=== PATIENT | female | born 1990 | race Two or more races ===

== ENCOUNTER 2023-01-22 09:32 | Inpatient (IN) | payer BC ==
[2023-01-22] MEDS ORDERED: hydrALAZINE 20 MG/ML VIAL SLOW IVP PRN ×2 (10:25→15:16)
[2023-01-22] MEDS ORDERED: Fentanyl 100 MCG/2 ML VIAL SLOW IVP PRN ×2 (10:25→12:20)
[2023-01-22] MEDS ORDERED: Promethazine HCl 25 MG/ML VIAL IM PRN ×3 (10:25→17:31)
[2023-01-22] MEDS ORDERED: Ondansetron PF 4 MG/2 ML Vial IVP PRN ×3 (10:25→15:16)
[2023-01-22] MEDS ORDERED: Bicitra 30 ML UDCUP PO PRN (10:25)
[2023-01-22] MEDS ORDERED: Famotidine/PF 20 mg/2ml Vial SLOW IVP PRN (10:25)
[2023-01-22] MEDS ORDERED: Lactated Ringer's 1,000 ML IV SCH (10:30)
[2023-01-22] MEDS ORDERED: NS w/ Oxytocin 30 units 500 ML IV SCH (10:30)
[2023-01-22] MEDS ORDERED: CEFAZOLIN 2 GM in Sodium Chloride 0.9% 100 ML IVPB SCH (10:30)
[2023-01-22 11:00] VITALS: BMI 24.4
[2023-01-22 11:06] LABS: Hemoglobin 11.7 g/dL (12.0-15.5); Mean Corpuscular HGB CONC 32.2 g/dL (32.0-36.0); Mean Corpuscular Hemoglobin 28.1 pg (27.0-33.0); Mean Corpuscular Volume 87.3 fl (81.6-98.3); Platelet Count 110 10x3/uL (150-450); RBC Distribution Width 14.7 % (11.5-14.5); Red Blood Cell (RBC) Count 4.16 10x6/uL (3.90-5.03); White Blood Cell (WBC) Count 11.2 10x3/uL (3.5-10.5)
[2023-01-22] MEDS ORDERED: Fentanyl 2 mcg/Bup 0.1% Cadd 100 ML ONE (11:43)
[2023-01-22] MEDS ORDERED: CEFAZOLIN 2 GM VIAL ONE (12:05)
[2023-01-22] MEDS ORDERED: diphenhydrAMINE 50 MG/ML VIAL IVP PRN (12:20)
[2023-01-22] MEDS ORDERED: Naloxone HCl 0.4 mg/ml Vial IV PRN (12:20)
[2023-01-22] MEDS ORDERED: Promethazine HCl 25 MG SUPP PR PRN (12:20)
[2023-01-22] MEDS ORDERED: Meperidine HCl/PF 25 MG/ML VIAL SLOW IVP PRN (12:20)
[2023-01-22] MEDS ORDERED: Ondansetron HCl/PF 4 MG/2 ML Vial IVP PRN (12:20)
[2023-01-22] MEDS ORDERED: Naloxone HCl 0.4 mg/ml Vial IVP PRN ×2 (12:20)
[2023-01-22] MEDS ORDERED: Moisturizing Cream (Eucerin) 113 GM JAR TOP PRN (12:20)
[2023-01-22] MEDS ORDERED: Morphine PF 10 MG/10 ML VIAL ONE (12:26)
[2023-01-22] MEDS ORDERED: Communication Order-Pharmacy FS SCH (12:30)
[2023-01-22] MEDS ORDERED: Phenylephrine 40 MG/NS 250 ML 250 ML ONE (12:35)
[2023-01-22] MEDS ORDERED: Ketorolac Tromethamine 30 MG/ML VIAL ONE (12:35)
[2023-01-22] MEDS ORDERED: Oxytocin 10 UNITS/ML VIAL ONE ×2 (12:35→13:15)
[2023-01-22] MEDS ORDERED: Ondansetron PF 4 MG/2 ML Vial ONE (12:35)
[2023-01-22] MEDS ORDERED: Metoclopramide HCl 10 MG/2 ML VIAL ONE (12:35)
[2023-01-22] MEDS ORDERED: Azithromycin 500 MG VIAL ONE (13:01)
[2023-01-22 13:20] LABS: HBSAg Index 0.15 S/CO (0-0.99); Hep B Surf Ag - L&D Non-Reactive S/CO (NonReactive)
[2023-01-22] MEDS ORDERED: Dexamethasone 4 mg/ml Vial ONE ×2 (13:20→13:23)
[2023-01-22] MEDS ORDERED: Famotidine/PF 20 mg/2ml Vial ONE (13:20)
[2023-01-22] MEDS ORDERED: Lanolin Ointment 7 GM TUBE TOP PRN (15:16)
[2023-01-22] MEDS ORDERED: HYDROcodone/Acetaminophen 5/325 mg Tablet PO PRN (15:16)
[2023-01-22] MEDS ORDERED: Simethicone Chewable 80 MG TAB PO PRN (15:16)
[2023-01-22] MEDS ORDERED: Bisacodyl 10 MG SUPP PR PRN (15:16)
[2023-01-22] MEDS ORDERED: Boostrix 0.5 ML (Tdap) VIAL (>/=7 yrs of age) IM ONE (15:16)
[2023-01-22] MEDS ORDERED: Ibuprofen 800 MG TAB PO SCH (15:30)
[2023-01-22] MEDS ORDERED: Ketorolac Tromethamine 30 MG/ML VIAL IVP PRN (19:00)
[2023-01-22] MEDS: Ferrous Sulfate 325 MG TAB PO SCH (20:17)
[2023-01-22] MEDS: Docusate 100 MG CAP PO SCH (20:17)
[2023-01-23 04:18] LABS: Hemoglobin 9.3 g/dL (12.0-15.5); Mean Corpuscular HGB CONC 31.7 g/dL (32.0-36.0); Mean Corpuscular Hemoglobin 27.7 pg (27.0-33.0); Mean Corpuscular Volume 87.2 fl (81.6-98.3); Mean Platelet Volume 14.3 fl (7.4-10.4); Platelet Count 79 10x3/uL (150-450); RBC Distribution Width 14.4 % (11.5-14.5); Red Blood Cell (RBC) Count 3.36 10x6/uL (3.90-5.03); White Blood Cell (WBC) Count 16.6 10x3/uL (3.5-10.5)
[2023-01-23 04:51] LABS: Syphilis Antibody Nonreactive (Nonreactive); Syphilis Antibody Index 0.03 S/CO (<1.00 Non-Reactive)
[2023-01-23] MEDS: HYDROcodone/Acetaminophen 5/325 mg Tablet PO PRN (06:39)
[2023-01-23] MEDS: Prenatal Vitamin 1 TAB PO SCH (07:56)
[2023-01-23] MEDS: Ferrous Sulfate 325 MG TAB PO SCH ×2 (07:56→21:52)
[2023-01-23] MEDS: Docusate 100 MG CAP PO SCH ×2 (07:57→21:48)
[2023-01-23] MEDS: Ketorolac Tromethamine 30 MG/ML VIAL IVP PRN ×2 (07:57→14:15)
[2023-01-23] MEDS: Ibuprofen 800 MG TAB PO SCH (21:48)
[2023-01-24] MEDS: Ibuprofen 800 MG TAB PO SCH (05:16)
[2023-01-24] MEDS: Prenatal Vitamin 1 TAB PO SCH (07:54)
[2023-01-24] MEDS: Docusate 100 MG CAP PO SCH (07:55)
[2023-01-24] MEDS: HYDROcodone/Acetaminophen 5/325 mg Tablet PO PRN (07:55)
[2023-01-24 09:23] VITALS: BP 136/88; TEMP 98.5
[2023-01-24] MEDS: Ferrous Sulfate 325 MG TAB PO SCH (12:12)
== END 2023-01-24 11:15 | disposition home or self-care (01) | DRG 788 ==
LOC: CSHLD/OP 09:32 → CSHLD 10:50 → CSHPP 16:30
PROVIDERS: ADMIT Obstetrics & Gynecology; ATTEND Obstetrics & Gynecology
PROC: 10D00Z1 Extraction of Products of Conception, Low, Open Approach (ICD-10-PCS; principal; 2023-01-22)
DX: O34.211 Maternal care for low transverse scar from previous cesarean delivery (principal); Z3A.38 38 weeks gestation of pregnancy; Z37.0 Single live birth; Z79.899 Other long term (current) drug therapy
CPT/HCPCS: 36415; 51702; 85027; 86780; 86850; 86900; 86901; 87340; 99285; J1100; J1885; J2274; J2405; J2550; J2590; J2765; S0028